=== PATIENT | female | born 1965 | race Caucasian/White ===

== ENCOUNTER 2016-08-14 08:29 | Emergency (ER) | payer BC, OTHER ==
--- NOTE | 2016-08-14 09:03 | REP ---
AP PORTABLE CHEST: 08/14/2016. Clinical history: Chest pain. Comparison: 06/10/2012. Findings: The lung montgomery are well inflated. The CP angles are sharply defined. There is no effusion, lateral pleural thickening or apical scarring. There is no pneumothorax, infiltrate, atelectasis or mass. Heart, mediastinal and hilar contours are normal. There is no pneumomediastinum. The aorta, airway and bony structures are grossly intact. No free air. Impression: 1. Normal AP portable chest. Signed by Roger Louis MD 08/14/2016 08:55 A
--- NOTE | 2016-08-14 09:05 | ECGEPIP ---
Stationary ECG Study [facility] - ED Test Date: 2016-08-14 Pat Name: LEESA CARMONA Department: Room: - Gender: F Systems Support Specialist: JUAN LUIS : 1965 Requested By: ROBERTO Mckenna Order Number: [id number] Reading MD: Kosta Raimrez Measurements Intervals [place] Rate: 62 P: 18 PA: 142 QRS: 19 QRSD: 95 T: 13 QT: 402 QTc: 410 Interpretive Statements SINUS RHYTHM NONSPECIFIC T WAVE ABNORMALITY SIMILAR TO 06/11/12 Electronically Signed On 08-14-2016 9:05:07 EST by Kosta Ramirez
[2016-08-14 09:30] LABS: BASO % 0.7 % (0.0-1.0); EOS # 0.1 K/mm3 (0.0-0.50); EOS % 2.5 % (0.0-3.0); LARGE UNSTAINED CELL # 0.1 K/mm3 (0.0-0.4); LARGE UNSTAINED CELL % 2.1 % (0.0-4.0); LYMPH # 1.4 K/mm3 (1.5-4.5); LYMPH % 24.9 % (24.0-44.0); MEAN CORPUSCULAR HEMOGLOBIN 28.3 pg (27.0-33.0); MEAN CORPUSCULAR HGB CONC 34.3 g/dl (32.0-36.5); MEAN CORPUSCULAR VOLUME 82.3 fl (80.0-96.0); MONO # 0.3 K/mm3 (0.0-0.8); MONO % 6.1 % (0.0-5.0); NEUTROPHILS # 3.4 K/mm3 (1.8-7.7); NEUTROPHILS % 63.6 % (36.0-66.0); PLATELET COUNT, AUTOMATED 242 k/mm3 (150-450); WHITE BLOOD COUNT 5.4 K/mm3 (4.0-10.0)
[2016-08-14 10:27] LABS: ANION GAP 10 MEQ/L (8-16); BLOOD UREA NITROGEN 20 MG/DL (7-18); CALCIUM LEVEL 9.3 MG/DL (8.5-10.1); CARBON DIOXIDE LEVEL 24 MEQ/L (21-32); CHLORIDE LEVEL 105 MEQ/L (98-107); CREATININE FOR GFR 0.72 MG/DL (0.55-1.02); GLOMERULAR FILTRATION RATE > 60.0 (>51); GLUCOSE, FASTING 203 MG/DL (70-105); SODIUM LEVEL 139 MEQ/L (136-145)
[2016-08-14] MEDS ORDERED: MECLIZINE 12.5 MG TAB As Ordered ONE (11:27)
--- NOTE | 2016-08-14 12:33 | EDDOCDS ---
Nurse's Notes [facility] Name: Jean Marie Pena Age: 50 yrs Sex: Female : 1965 Arrival Date: 08/14/2016 Time: 08:29 Bed D2 Private MD: Jenny Obando E Diagnosis: Chest pain, unspecified;Benign paroxysmal vertigo Presentation: 08/14 08:43 Presenting complaint: Patient states: states SOB while biking all summer long, states ml6 intermittent chest pain right sided x 1 week, states that she awoke this am with dizziness and same right sided chest pain 4/10. Adult Sepsis Screening: The patient does not have new or worsening altered mentation. Patient's respiratory rate is less than 22. Systolic blood pressure is greater than 100. Patient has a qSOFA score of 0- Negative Sepsis Screen. Suicide/Homicide risk assessment- the patient denies having any suicidal and/or homicidal ideations and does not present with any other emotional, behavioral or mental health complaints. 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 Transition of care: patient was not received from another setting of care. Red Flag criteria, patient assessed and taken directly to a bed. 08:43 Acuity: LOLI Level 2 ml6 08:43 Method Of Arrival: Walkin/Carried/Asstd ml6 Triage Assessment: 08:48 General: Appears in no apparent distress, Behavior is anxious, cooperative. Pain: ml6 Location: anterior aspect of right upper chest and right breast Pain currently is 4 out of 10 on a pain scale. Pain does not radiate. 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 HIV screening NA for this visit Offered previously. Neurological: No deficits noted. Cardiovascular: Capillary refill < 3 seconds is brisk in bilateral fingers toes Rhythm is regular Chest pain is described as mild, quality is pressure, is located in right anterior chest wall radiates Does not radiate. episodes are intermittent last > 5 minutes began 1 week MATERIAL ANALYST is aggravated by activity. Respiratory: No deficits noted. Airway is patent Respiratory effort is even, unlabored, Respiratory pattern is regular, symmetrical, Breath sounds are clear bilaterally. 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 metformin 500 mg Oral tab 1 tab daily (Last dose: 08/14/2016 07:00) 2. Invokana 100 mg oral tab 1 tab once daily stopped taking 5 days ago 3. lisinopril 2.5 mg Oral tab 1 tab once daily (Last dose: 08/14/2016 07:00) 4. Xanax 0.5 mg Oral tab 1 tab twice a day PRN anxiety (Last dose: Unknown) - PMHx: Diabetes - NIDDM: controlled; Anxiety; - PSHx: Hysterectomy; Cholecystectomy; Knee surgery- Left; - Social history: Smoking status: Patient states was never smoker of tobacco. No barriers to communication noted, Speaks appropriately for age. - Family history: Not pertinent. - : The pt / caregiver states he / she is not on anticoagulants. Home medication list is obtained from the patient. - Exposure Risk Screening:: None identified. Screenin:45 Screening information is obtained from the patient. Fall risk: No risks identified. ml6 Assistance ADL's: requires no assistance with activities of daily living. Abuse/DV Screen: The patient / caregiver reports he/she is: not in a situation that causes fear, pain or injury. Nutritional screening: No deficits noted. Advance Directives: Currently, there is no health care proxy. home support is adequate. Assessment: 08:43 General: see triage assessment. ml6 Vital Signs: 08:34 BP 174 / 82 (auto/); Pulse 70; Resp 16; Temp 98.2(O); Pulse Ox 98% on R/A; Weight 78.47 ml6 kg (R); Height 5 ft. (152.40 cm) (R); Pain 4/10; 09:07 BP 149 / 86 (auto/); ml6 09:07 Pulse 66 MON; Resp 16; Pulse Ox 97% on R/A; Pain 0/10; ml6 09:39 BP 148 / 89 (auto/); ml6 09:39 Pulse 64 MON; Resp 16; Pulse Ox 97% on R/A; ml6 10:09 BP 131 / 70 (auto/); ml6 10:09 Pulse 62 MON; Resp 16; Pulse Ox 97% on R/A; ml6 10:39 BP 154 / 86 (auto/); ml6 10:39 Pulse 60 MON; Resp 16; Pulse Ox 97% on R/A; ml6 11:28 BP 135 / 88 (auto/); ml6 11:28 Pulse 58 MON; Resp 16; Pulse Ox 97% on R/A; Pain 0/10; ml6 11:29 BP 159 / 80 (auto/); ml6 11:29 Pulse 58 MON; Resp 16; Pulse Ox 97% on R/A; ml6 11:31 BP 147 / 89 (auto/); ml6 11:31 Pulse 62 MON; Resp 16; Pulse Ox 98% on R/A; Pain 0/10; ml6 11:37 BP 141 / 77 (auto/); ml6 11:37 Pulse 56 MON; Resp 16; Pulse Ox 95% on R/A; Pain 0/10; ml6 11:46 BP 141 / 81 (auto/); ml6 11:46 Pulse 58 MON; Resp 16; Pulse Ox 98% on R/A; Pain 0/10; ml6 11:50 BP 141 / 81; Pulse 57; Resp 20; Temp 97.2(O); Pulse Ox 97% on R/A; Pain 0/10; tmm1 08:34 Body Mass Index 33.79 (78.47 kg, 152.40 cm) ml6 ED Course: 08:31 Patient visited by Bayron Claudio. mm15 08:31 Patient moved to Waiting mm15 08:32 Jenny Obando is Private Physician. 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 Pulse ox on. NIBP on. ml6 08:46 Triage Initiated ml6 08:47 Patient visited by Luis Ham. jml1 08:47 EKG done. (by ED staff). Reviewed by Roberto Magaña MD. jml1 09:13 Inserted peripheral IV: 20gauge IV in left hand and blood collected. Patient tolerated ml6 the procedure well. No procedures done that require assistance. Labs drawn. (by ED staff). Sent per order to lab. 09:14 The patient / caregiver is instructed regarding the plan of care and ED course. ml6 09:16 Patient visited by Constantino Solano RN. ml6 09:29 EKG-ADULT Returned. EDMS 09:33 Chest, 1 View Returned. EDMS 09:46 Paul Horn PA-C is PHCP. cc10 09:46 Roberto Magaña MD is Attending Physician. cc10 09:46 Patient visited by Paul Horn PA-C. cc10 09:46 Patient visited by Paul Horn PA-C. cc10 10:12 [facility] Payment Agreement was scanned into [email or web address] and attached to record. lg 10:26 Patient visited by Constantino Solano, MATT. ml6 11:26 Patient visited by Constantino Solano RN. ml6 11:39 Jenny Obando is Referral Physician. cc10 11:45 Discontinued IV bleeding controlled, pressure dressing applied, No redness/swelling at ml6 site. 11:51 Patient visited by Gris Haynes PCA. tmm1 12:09 Patient moved to D2 ml6 Administered Medications: 11:27 Drug: Meclizine 25 mg [meclizine 12.5 mg tablet (2 tabs)] Route: PO; ml6 Order Results: Lab Order: BMP; SPEC'M 08/14/16 09:11 Test: GLUCOSE, FASTING; Value: 203; Range: 70-105; Abnormal: Above high normal; Units: MG/DL; Status: F Test: BLOOD UREA NITROGEN; Value: 20; Range: 7-18; Abnormal: Above high normal; Units: MG/DL; Status: F Test: CREATININE FOR GFR; Value: 0.72; Range: 0.55-1.02; Units: MG/DL; Status: F Test: GLOMERULAR FILTRATION RATE; Value: > 60.0; Range: >51; Status: F Test: SODIUM LEVEL; Value: 139; Range: 136-145; Units: MEQ/L; Status: F Test: POTASSIUM SERUM; Value: 4.0; Range: 3.5-5.1; Units: MEQ/L; Status: F Test: CHLORIDE LEVEL; Value: 105; Range: 98-107; Units: MEQ/L; Status: F Test: CARBON DIOXIDE LEVEL; Value: 24; Range: 21-32; Units: MEQ/L; Status: F Test: ANION GAP; Value: 10; Range: 8-16; Units: MEQ/L; Status: F Test: CALCIUM LEVEL; Value: 9.3; Range: 8.5-10.1; Units: MG/DL; Status: F Test Note: ; Units are mL/min/1.73 m2 Chronic Kidney Disease Staging per NKF: Stage I & II GFR >=60 Normal to Mildly Decreased Stage III GFR 30-59 Moderately Decreased Stage IV GFR 15-29 Severely Decreased Stage V GFR <15 Very Little GFR Left ESRD GFR <15 on DAIRY GRAZER Lab Order: CBC with Diff; CHARLETTE 08/14/16 09:11 Test: WHITE BLOOD COUNT; Value: 5.4; Range: 4.0-10.0; Units: K/mm3; Status: F Test: RED BLOOD COUNT; Value: 4.65; Range: 4.00-5.40; Units: M/mm3; Status: F Test: HEMOGLOBIN; Value: 13.1; Range: 12.0-16.0; Units: g/dl; Status: F Test: HEMATOCRIT; Value: 38.3; Range: 36.0-47.0; Units: %; Status: F Test: MEAN CORPUSCULAR VOLUME; Value: 82.3; Range: 80.0-96.0; Units: fl; Status: F Test: MEAN CORPUSCULAR HEMOGLOBIN; Value: 28.3; Range: 27.0-33.0; Units: pg; Status: F Test: MEAN CORPUSCULAR HGB CONC; Value: 34.3; Range: 32.0-36.5; Units: g/dl; Status: F Test: RED CELL DISTRIBUTION WIDTH; Value: 15.0; Range: 11.5-14.5; Abnormal: Above high normal; Units: %; Status: F Test: PLATELET COUNT, AUTOMATED; Value: 242; Range: 150-450; Units: k/mm3; Status: F Test: NEUTROPHILS %; Value: 63.6; Range: 36.0-66.0; Units: %; Status: F Test: LYMPH %; Value: 24.9; Range: 24.0-44.0; Units: %; Status: F Test: MONO %; Value: 6.1; Range: 0.0-5.0; Abnormal: Above high normal; Units: %; Status: F Test: EOS %; Value: 2.5; Range: 0.0-3.0; Units: %; Status: F Test: BASO %; Value: 0.7; Range: 0.0-1.0; Units: %; Status: F Test: LARGE UNSTAINED CELL %; Value: 2.1; Range: 0.0-4.0; Units: %; Status: F Test: NEUTROPHILS #; Value: 3.4; Range: 1.8-7.7; Units: K/mm3; Status: F Test: LYMPH #; Value: 1.4; Range: 1.5-4.5; Abnormal: Below low normal; Units: K/mm3; Status: F Test: MONO #; Value: 0.3; Range: 0.0-0.8; Units: K/mm3; Status: F Test: EOS #; Value: 0.1; Range: 0.0-0.50; Units: K/mm3; Status: F Test: BASO #; Value: 0.0; Range: 0.0-0.2; Units: K/mm3; Status: F Test: LARGE UNSTAINED CELL #; Value: 0.1; Range: 0.0-0.4; Units: K/mm3; Status: F Lab Order: CIP; SPEC'M 08/14/16 09:11 Test: CPK CREATINE PHOSPHOKINASE; Value: 53; Range: 26-192; Units: U/L; Status: F Test: CK-MB VALUE MASS; Value: 1.0; Range: 0.0-3.6; Units: NG/ML; Status: F Test: MB/CK RELATIVE INDEX; Value: 1.88; Range: < OR =4; Status: F Test Note: ; DIAGNOSIS CRITERIA MMB ng/ml Relative Index (RI) NON-AMI < or = 5 N/A GUILLERMO ZONE > 5 < or = 4 AMI > 5 > 4 Lab Order: Troponin; SPEC'M 08/14/16 09:11 Test: TROPONIN I; Value: < 0.02; Range: < 0.10; Units: NG/ML; Status: F Test Note: ; Troponin I Reference Interval for [employer] LOCI: 99th Percentile= 0.00-0.045 ng/ml Risk Stratification: <= 0.10 ng/ml Decreased Risk for Adverse Clinical Events. 0.10-1.50 ng/ml Increased Risk for Adverse Clinical Events. Evaluation of additional criterion and/or repeat testing in 2-6 hours is suggested to rule out myocardial damage. >= 1.50 ng/ml Indicative of Myocardial Injury. Lab Order: A1C; SPEC'M 08/14/16 09:11 Test: HEMOGLOBIN A1c; Value: 6.8; Range: 4.5-6.2; Abnormal: Above high normal; Units: %; Status: F Test: ESTIMATED AVERAGE GLUCOSE; Value: 148; Range: 60-110; Abnormal: Above high normal; Units: MG/DL; Status: F Lab Order: D-Dimer Quant; SPEC'M 08/14/16 09:11 Test: D-DIMER QUANT; Value: < 270.0; Range: <500; Units: ng/ml; Status: F Radiology Order: Chest, 1 View Test: Chest, 1 View REASON FOR EXAMINATION: Chest Pain; AP PORTABLE CHEST: 08/14/2016.; ; Clinical history: Chest pain.; ; Comparison: 06/10/2012.; ; Findings: The lung montgomery are well inflated. The CP angles are sharply defined.; There is no effusion, lateral pleural thickening or apical scarring. There is no; pneumothorax, infiltrate, atelectasis or mass. Heart, mediastinal and hilar; contours are normal. There is no pneumomediastinum. The aorta, airway and bony; structures are grossly intact. No free air.; ; Impression:; 1. 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 cc10 11:45 Discharge Assessment: patient administered narcotics - no. The following High Risk ml6 Discharge criteria are identified: None. Discharged to home ambulatory, with significant other. Condition: stable. CT Study completed. Property sent home with patient. :Personal belongings accompany Pt. 12:32 Patient left the ED. ml6 Signatures: Dispatcher [employer] EDMS Sameera Arias, Reg Reg lg Irvin, Elvis Saucedo RN RN mlb1 Constantino Solano RN RN ml6 Luis Ham jml1 Gris Haynes, NURSE COLLEGE NURSE COLLEGE tmm1 Bayron Claudio mm15 Paul Horn, PA-C PA-C cc10 Corrections: (The following items were deleted from the chart) 09:26 09:21 HEMOGLOBIN A1C+LAB sent. malaika CHICAS MTDD
--- NOTE | 2016-08-14 12:33 | EDDOCDS ---
Physician Documentation [facility] Name: Jean Marie Pena Age: 50 yrs Sex: Female : 1965 Arrival Date: 08/14/2016 Time: 08:29 Bed D2 Private MD: Jenny Obando E Disposition: 08/14/16 11:39 Discharged to Home/Self Care. Impression: Chest pain, unspecified, Benign paroxysmal vertigo. - Condition is Stable. - Discharge Instructions: Nonspecific Chest Pain, Vertigo. - Prescriptions for Meclizine 25 mg Oral Tablet - take 1 tablet by ORAL route every 8 hours As needed; 30 tablet. - Medication Reconciliation, Work Release Form - 1 day form. - Follow up: Jenny Obando; When: Call to arrange an appointment; Reason: Wound/Symptom Recheck, Recheck today's complaints, Worsening of conditions, Continuance of care. - Problem is an ongoing problem. - Symptoms are unchanged. Historical: - Allergies: Codeine Sulfate (dizziness); - Home Meds: 1. metformin 500 mg Oral tab 1 tab daily (Last dose: 08/14/2016 07:00) 2. Invokana 100 mg oral tab 1 tab once daily stopped taking 5 days ago 3. lisinopril 2.5 mg Oral tab 1 tab once daily (Last dose: 08/14/2016 07:00) 4. Xanax 0.5 mg Oral tab 1 tab twice a day PRN anxiety (Last dose: Unknown) - PMHx: Diabetes - NIDDM: controlled; Anxiety; - PSHx: Hysterectomy; Cholecystectomy; Knee surgery- Left; - Social history: Smoking status: Patient states was never smoker of tobacco. No barriers to communication noted, Speaks appropriately for age. - Family history: Not pertinent. - : The pt / caregiver states he / she is not on anticoagulants. Home medication list is obtained from the patient. - Exposure Risk Screening:: None identified. 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 (152.40 cm) (R); Pain 4/10; 09:07 BP 149 / 86 (auto/); ml6 09:07 Pulse 66 MON; Resp 16; Pulse Ox 97% on R/A; Pain 0/10; ml6 09:39 BP 148 / 89 (auto/); ml6 09:39 Pulse 64 MON; Resp 16; Pulse Ox 97% on R/A; ml6 10:09 BP 131 / 70 (auto/); ml6 10:09 Pulse 62 MON; Resp 16; Pulse Ox 97% on R/A; ml6 10:39 BP 154 / 86 (auto/); ml6 10:39 Pulse 60 MON; Resp 16; Pulse Ox 97% on R/A; ml6 11:28 BP 135 / 88 (auto/); ml6 11:28 Pulse 58 MON; Resp 16; Pulse Ox 97% on R/A; Pain 0/10; ml6 11:29 BP 159 / 80 (auto/); ml6 11:29 Pulse 58 MON; Resp 16; Pulse Ox 97% on R/A; ml6 11:31 BP 147 / 89 (auto/); ml6 11:31 Pulse 62 MON; Resp 16; Pulse Ox 98% on R/A; Pain 0/10; ml6 11:37 BP 141 / 77 (auto/); ml6 11:37 Pulse 56 MON; Resp 16; Pulse Ox 95% on R/A; Pain 0/10; ml6 11:46 BP 141 / 81 (auto/); ml6 11:46 Pulse 58 MON; Resp 16; Pulse Ox 98% on R/A; Pain 0/10; ml6 11:50 BP 141 / 81; Pulse 57; Resp 20; Temp 97.2(O); Pulse Ox 97% on R/A; Pain 0/10; tmm1 08:34 Body Mass Index 33.79 (78.47 kg, 152.40 cm) ml6 MDM: 08:34 Craps Manager/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 ml6 08:34 If >35 years old with cardiac risk factors and/or suspicion of acute ischemia- place ml6 directly in room and do STAT EKG ordered. 08:34 IV Saline Lock ordered. ml6 08:34 Undress patient appropriately for examination ordered. ml6 08:35 BMP Ordered. EDMS 08:35 CBC with Diff Ordered. EDMS 08:35 CIP Ordered. EDMS 08:35 Troponin Ordered. EDMS 08:35 Chest, 1 View Ordered. EDMS 08:35 ECG WITH READING ER PHYS+CARDIAG ordered. EDMS 09:49 A1C Ordered. EDMS 09:54 CT Head Without Contrast Ordered. EDMS 09:55 Financial registration complete. lg 09:58 D-Dimer Quant Ordered. EDMS 10:12 [facility] Payment Agreement was scanned into [employer] and attached to record. lg 10:48 BMP Reviewed. cc10 10:48 CBC with Diff Reviewed. cc10 10:48 CIP Reviewed. cc10 10:48 Troponin Reviewed. cc10 10:48 D-Dimer Quant Reviewed. cc10 10:48 Chest, 1 View Reviewed. cc10 10:48 EKG-ADULT Reviewed. cc10 11:14 Orthostatic VS ordered. cc10 11:14 Meclizine 25 mg PO once ordered. cc10 11:14 Ambulate Patient to Assess Patient Safety ordered. cc10 11:36 A1C Reviewed. cc10 Administered Medications: 11:27 Drug: Meclizine 25 mg [meclizine 12.5 mg tablet (2 tabs)] Route: PO; ml6 Signatures: Dispatcher [employer] EDMS Sameera Arias, Reg Reg lg Constantino Solano, RN RN ml6 Paul Horn PA-C PAMinC cc10 The chart was reviewed and I authenticate all verbal orders and agree with the evaluation and treatment provided.Corrections: (The following items were deleted from the chart) 09:26 09:15 HEMOGLOBIN A1C+LAB ordered. EDMS EDMS Attachments: 10:12 [facility] Payment Agreement lg MTDD
--- NOTE | 2016-08-15 07:21 | REP ---
Clinical: Altered mental status . Comparison: None . Findings: The ventricles, sulci, and cisterns are normal in position and appearance. Alvarez-white differentiation is maintained. No acute intracranial hemorrhage, mass/mass effect, pathology or trauma/injury. No evidence for acute infarction. No extra-axial fluid collection. Calvarium is intact. Paranasal sinuses and mastoid air cells are clear. Impression: Normal noncontrast head CT. No evidence for acute intracranial pathology or trauma/injury. Signed by Dre Mcgraw MD 08/14/2016 10:06 A
--- NOTE | 2016-08-16 13:33 | EDDOCDS ---
Physician Documentation [facility] Name: Jean Marie Pena Age: 50 yrs Sex: Female : 1965 Arrival Date: 08/14/2016 Time: 08:29 Bed D2 Private MD: Jenny Obando E Disposition: 08/14/16 11:39 Discharged to Home/Self Care. Impression: Chest pain, unspecified, Benign paroxysmal vertigo. - Condition is Stable. - Discharge Instructions: Nonspecific Chest Pain, Vertigo. - Prescriptions for Meclizine 25 mg Oral Tablet - take 1 tablet by ORAL route every 8 hours As needed; 30 tablet. - Medication Reconciliation, Work Release Form - 1 day form. - Follow up: Jenny Obando; When: Call to arrange an appointment; Reason: Wound/Symptom Recheck, Recheck today's complaints, Worsening of conditions, Continuance of care. - Problem is an ongoing problem. - Symptoms are unchanged. Historical: - Allergies: Codeine Sulfate (dizziness); - Home Meds: 1. metformin 500 mg Oral tab 1 tab daily (Last dose: 08/14/2016 07:00) 2. Invokana 100 mg oral tab 1 tab once daily stopped taking 5 days ago 3. lisinopril 2.5 mg Oral tab 1 tab once daily (Last dose: 08/14/2016 07:00) 4. Xanax 0.5 mg Oral tab 1 tab twice a day PRN anxiety (Last dose: Unknown) - PMHx: Diabetes - NIDDM: controlled; Anxiety; - PSHx: Hysterectomy; Cholecystectomy; Knee surgery- Left; - Social history: Smoking status: Patient states was never smoker of tobacco. No barriers to communication noted, Speaks appropriately for age. - Family history: Not pertinent. - : The pt / caregiver states he / she is not on anticoagulants. Home medication list is obtained from the patient. - Exposure Risk Screening:: None identified. 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 (152.40 cm) (R); Pain 4/10; 09:07 BP 149 / 86 (auto/); ml6 09:07 Pulse 66 MON; Resp 16; Pulse Ox 97% on R/A; Pain 0/10; ml6 09:39 BP 148 / 89 (auto/); ml6 09:39 Pulse 64 MON; Resp 16; Pulse Ox 97% on R/A; ml6 10:09 BP 131 / 70 (auto/); ml6 10:09 Pulse 62 MON; Resp 16; Pulse Ox 97% on R/A; ml6 10:39 BP 154 / 86 (auto/); ml6 10:39 Pulse 60 MON; Resp 16; Pulse Ox 97% on R/A; ml6 11:28 BP 135 / 88 (auto/); ml6 11:28 Pulse 58 MON; Resp 16; Pulse Ox 97% on R/A; Pain 0/10; ml6 11:29 BP 159 / 80 (auto/); ml6 11:29 Pulse 58 MON; Resp 16; Pulse Ox 97% on R/A; ml6 11:31 BP 147 / 89 (auto/); ml6 11:31 Pulse 62 MON; Resp 16; Pulse Ox 98% on R/A; Pain 0/10; ml6 11:37 BP 141 / 77 (auto/); ml6 11:37 Pulse 56 MON; Resp 16; Pulse Ox 95% on R/A; Pain 0/10; ml6 11:46 BP 141 / 81 (auto/); ml6 11:46 Pulse 58 MON; Resp 16; Pulse Ox 98% on R/A; Pain 0/10; ml6 11:50 BP 141 / 81; Pulse 57; Resp 20; Temp 97.2(O); Pulse Ox 97% on R/A; Pain 0/10; tmm1 08:34 Body Mass Index 33.79 (78.47 kg, 152.40 cm) ml6 MDM: 08:34 Wellness Director/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 ml6 08:34 If >35 years old with cardiac risk factors and/or suspicion of acute ischemia- place ml6 directly in room and do STAT EKG ordered. 08:34 IV Saline Lock ordered. ml6 08:34 Undress patient appropriately for examination ordered. ml6 08:35 BMP Ordered. EDMS 08:35 CBC with Diff Ordered. EDMS 08:35 CIP Ordered. EDMS 08:35 Troponin Ordered. EDMS 08:35 Chest, 1 View Ordered. EDMS 08:35 ECG WITH READING ER PHYS+CARDIAG ordered. EDMS 09:49 A1C Ordered. EDMS 09:54 CT Head Without Contrast Ordered. EDMS 09:55 Financial registration complete. lg 09:58 D-Dimer Quant Ordered. EDMS 10:12 [facility] Payment Agreement was scanned into [employer] and attached to record. lg 10:48 BMP Reviewed. cc10 10:48 CBC with Diff Reviewed. cc10 10:48 CIP Reviewed. cc10 10:48 Troponin Reviewed. cc10 10:48 D-Dimer Quant Reviewed. cc10 10:48 Chest, 1 View Reviewed. cc10 10:48 EKG-ADULT Reviewed. cc10 11:14 Orthostatic VS ordered. cc10 11:14 Meclizine 25 mg PO once ordered. cc10 11:14 Ambulate Patient to Assess Patient Safety ordered. cc10 11:36 A1C Reviewed. cc10 14:15 T-Sheet-- Draft Copy was scanned into [employer] and attached to record. klr 15:24 ECG/EKG was scanned into [employer] and attached to record. gb Administered Medications: 11:27 Drug: Meclizine 25 mg [meclizine 12.5 mg tablet (2 tabs)] Route: PO; ml6 Signatures: Dispatcher [employer] EDMS Lu Conley, Reg Reg gb Sameera Arias, Reg Reg lg Constantino Solano RN RN ml6 Paul Horn PA-C PADago cc10 Aleksandra Monroe klaan The chart was reviewed and I authenticate all verbal orders and agree with the evaluation and treatment provided.Corrections: (The following items were deleted from the chart) 09:26 09:15 HEMOGLOBIN A1C+LAB ordered. EDMS EDMS Attachments: 10:12 [facility] Payment Agreement lg 14:15 T-Sheet-- Draft Copy klr 15:24 ECG/EKG gb Chart Complete MTDD
--- NOTE | 2016-08-16 13:33 | EDDOCDS ---
Nurse's Notes [facility] Name: Jean Marie Pena Age: 50 yrs Sex: Female : 1965 Arrival Date: 08/14/2016 Time: 08:29 Bed D2 Private MD: Jenny Obando E Diagnosis: Chest pain, unspecified;Benign paroxysmal vertigo Presentation: 08/14 08:43 Presenting complaint: Patient states: states SOB while biking all summer long, states ml6 intermittent chest pain right sided x 1 week, states that she awoke this am with dizziness and same right sided chest pain 4/10. Adult Sepsis Screening: The patient does not have new or worsening altered mentation. Patient's respiratory rate is less than 22. Systolic blood pressure is greater than 100. Patient has a qSOFA score of 0- Negative Sepsis Screen. Suicide/Homicide risk assessment- the patient denies having any suicidal and/or homicidal ideations and does not present with any other emotional, behavioral or mental health complaints. 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 Transition of care: patient was not received from another setting of care. Red Flag criteria, patient assessed and taken directly to a bed. 08:43 Acuity: LOLI Level 2 ml6 08:43 Method Of Arrival: Walkin/Carried/Asstd ml6 Triage Assessment: 08:48 General: Appears in no apparent distress, Behavior is anxious, cooperative. Pain: ml6 Location: anterior aspect of right upper chest and right breast Pain currently is 4 out of 10 on a pain scale. Pain does not radiate. 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 HIV screening NA for this visit Offered previously. Neurological: No deficits noted. Cardiovascular: Capillary refill < 3 seconds is brisk in bilateral fingers toes Rhythm is regular Chest pain is described as mild, quality is pressure, is located in right anterior chest wall radiates Does not radiate. episodes are intermittent last > 5 minutes began 1 week MEMORANDUM STATEMENT CLERK is aggravated by activity. Respiratory: No deficits noted. Airway is patent Respiratory effort is even, unlabored, Respiratory pattern is regular, symmetrical, Breath sounds are clear bilaterally. 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 metformin 500 mg Oral tab 1 tab daily (Last dose: 08/14/2016 07:00) 2. Invokana 100 mg oral tab 1 tab once daily stopped taking 5 days ago 3. lisinopril 2.5 mg Oral tab 1 tab once daily (Last dose: 08/14/2016 07:00) 4. Xanax 0.5 mg Oral tab 1 tab twice a day PRN anxiety (Last dose: Unknown) - PMHx: Diabetes - NIDDM: controlled; Anxiety; - PSHx: Hysterectomy; Cholecystectomy; Knee surgery- Left; - Social history: Smoking status: Patient states was never smoker of tobacco. No barriers to communication noted, Speaks appropriately for age. - Family history: Not pertinent. - : The pt / caregiver states he / she is not on anticoagulants. Home medication list is obtained from the patient. - Exposure Risk Screening:: None identified. Screenin:45 Screening information is obtained from the patient. Fall risk: No risks identified. ml6 Assistance ADL's: requires no assistance with activities of daily living. Abuse/DV Screen: The patient / caregiver reports he/she is: not in a situation that causes fear, pain or injury. Nutritional screening: No deficits noted. Advance Directives: Currently, there is no health care proxy. home support is adequate. Assessment: 08:43 General: see triage assessment. ml6 Vital Signs: 08:34 BP 174 / 82 (auto/); Pulse 70; Resp 16; Temp 98.2(O); Pulse Ox 98% on R/A; Weight 78.47 ml6 kg (R); Height 5 ft. (152.40 cm) (R); Pain 4/10; 09:07 BP 149 / 86 (auto/); ml6 09:07 Pulse 66 MON; Resp 16; Pulse Ox 97% on R/A; Pain 0/10; ml6 09:39 BP 148 / 89 (auto/); ml6 09:39 Pulse 64 MON; Resp 16; Pulse Ox 97% on R/A; ml6 10:09 BP 131 / 70 (auto/); ml6 10:09 Pulse 62 MON; Resp 16; Pulse Ox 97% on R/A; ml6 10:39 BP 154 / 86 (auto/); ml6 10:39 Pulse 60 MON; Resp 16; Pulse Ox 97% on R/A; ml6 11:28 BP 135 / 88 (auto/); ml6 11:28 Pulse 58 MON; Resp 16; Pulse Ox 97% on R/A; Pain 0/10; ml6 11:29 BP 159 / 80 (auto/); ml6 11:29 Pulse 58 MON; Resp 16; Pulse Ox 97% on R/A; ml6 11:31 BP 147 / 89 (auto/); ml6 11:31 Pulse 62 MON; Resp 16; Pulse Ox 98% on R/A; Pain 0/10; ml6 11:37 BP 141 / 77 (auto/); ml6 11:37 Pulse 56 MON; Resp 16; Pulse Ox 95% on R/A; Pain 0/10; ml6 11:46 BP 141 / 81 (auto/); ml6 11:46 Pulse 58 MON; Resp 16; Pulse Ox 98% on R/A; Pain 0/10; ml6 11:50 BP 141 / 81; Pulse 57; Resp 20; Temp 97.2(O); Pulse Ox 97% on R/A; Pain 0/10; tmm1 08:34 Body Mass Index 33.79 (78.47 kg, 152.40 cm) ml6 ED Course: 08:31 Patient visited by Bayron Claudio. mm15 08:31 Patient moved to Waiting mm15 08:32 Jenny Obando is Private Physician. mm15 08:32 Patient moved to 11 b1 08:40 court monitor on. Pulse ox on. NIBP on. ml6 08:46 Triage Initiated ml6 08:47 Patient visited by Luis Ham. jml1 08:47 EKG done. (by ED staff). Reviewed by Roberto Magaña MD. jml1 09:13 Inserted peripheral IV: 20gauge IV in left hand and blood collected. Patient tolerated ml6 the procedure well. No procedures done that require assistance. Labs drawn. (by ED staff). Sent per order to lab. 09:14 The patient / caregiver is instructed regarding the plan of care and ED course. ml6 09:16 Patient visited by Constantino Solano RN. ml6 09:29 EKG-ADULT Returned. EDMS 09:33 Chest, 1 View Returned. EDMS 09:46 Paul Horn PA-C is PHCP. cc10 09:46 Roberto Magaña MD is Attending Physician. cc10 09:46 Patient visited by Paul Horn PA-C. cc10 09:46 Patient visited by Paul Horn PA-C. cc10 10:12 [facility] Payment Agreement was scanned into Mavin and attached to record. lg 10:26 Patient visited by Constantino Solano, MATT. ml6 11:26 Patient visited by Constantino Solano, MATT. ml6 11:39 Jenny Obando is Referral Physician. cc10 11:45 Discontinued IV bleeding controlled, pressure dressing applied, No redness/swelling at ml6 site. 11:51 Patient visited by Gris Haynes PCA. tmm1 12:09 Patient moved to D2 6 14:15 T-Sheet-- Draft Copy was scanned into Mavin and attached to record. klr 15:24 ECG/EKG was scanned into Mavin and attached to record. gb 08/15 07:56 CT Head Without Contrast Returned. EDMS Administered Medications: 08/14 11:27 Drug: Meclizine 25 mg [meclizine 12.5 mg tablet (2 tabs)] Route: PO; ml6 Order Results: Lab Order: BMP; SPEC'M 08/14/16 09:11 Test: GLUCOSE, FASTING; Value: 203; Range: 70-105; Abnormal: Above high normal; Units: MG/DL; Status: F Test: BLOOD UREA NITROGEN; Value: 20; Range: 7-18; Abnormal: Above high normal; Units: MG/DL; Status: F Test: CREATININE FOR GFR; Value: 0.72; Range: 0.55-1.02; Units: MG/DL; Status: F Test: GLOMERULAR FILTRATION RATE; Value: > 60.0; Range: >51; Status: F Test: SODIUM LEVEL; Value: 139; Range: 136-145; Units: MEQ/L; Status: F Test: POTASSIUM SERUM; Value: 4.0; Range: 3.5-5.1; Units: MEQ/L; Status: F Test: CHLORIDE LEVEL; Value: 105; Range: 98-107; Units: MEQ/L; Status: F Test: CARBON DIOXIDE LEVEL; Value: 24; Range: 21-32; Units: MEQ/L; Status: F Test: ANION GAP; Value: 10; Range: 8-16; Units: MEQ/L; Status: F Test: CALCIUM LEVEL; Value: 9.3; Range: 8.5-10.1; Units: MG/DL; Status: F Test Note: ; Units are mL/min/1.73 m2 Chronic Kidney Disease Staging per NKF: Stage I & II GFR >=60 Normal to Mildly Decreased Stage III GFR 30-59 Moderately Decreased Stage IV GFR 15-29 Severely Decreased Stage V GFR <15 Very Little GFR Left ESRD GFR <15 on VENUE COORDINATOR Lab Order: CBC with Diff; SPEC'M 08/14/16 09:11 Test: WHITE BLOOD COUNT; Value: 5.4; Range: 4.0-10.0; Units: K/mm3; Status: F Test: RED BLOOD COUNT; Value: 4.65; Range: 4.00-5.40; Units: M/mm3; Status: F Test: HEMOGLOBIN; Value: 13.1; Range: 12.0-16.0; Units: g/dl; Status: F Test: HEMATOCRIT; Value: 38.3; Range: 36.0-47.0; Units: %; Status: F Test: MEAN CORPUSCULAR VOLUME; Value: 82.3; Range: 80.0-96.0; Units: fl; Status: F Test: MEAN CORPUSCULAR HEMOGLOBIN; Value: 28.3; Range: 27.0-33.0; Units: pg; Status: F Test: MEAN CORPUSCULAR HGB CONC; Value: 34.3; Range: 32.0-36.5; Units: g/dl; Status: F Test: RED CELL DISTRIBUTION WIDTH; Value: 15.0; Range: 11.5-14.5; Abnormal: Above high normal; Units: %; Status: F Test: PLATELET COUNT, AUTOMATED; Value: 242; Range: 150-450; Units: k/mm3; Status: F Test: NEUTROPHILS %; Value: 63.6; Range: 36.0-66.0; Units: %; Status: F Test: LYMPH %; Value: 24.9; Range: 24.0-44.0; Units: %; Status: F Test: MONO %; Value: 6.1; Range: 0.0-5.0; Abnormal: Above high normal; Units: %; Status: F Test: EOS %; Value: 2.5; Range: 0.0-3.0; Units: %; Status: F Test: BASO %; Value: 0.7; Range: 0.0-1.0; Units: %; Status: F Test: LARGE UNSTAINED CELL %; Value: 2.1; Range: 0.0-4.0; Units: %; Status: F Test: NEUTROPHILS #; Value: 3.4; Range: 1.8-7.7; Units: K/mm3; Status: F Test: LYMPH #; Value: 1.4; Range: 1.5-4.5; Abnormal: Below low normal; Units: K/mm3; Status: F Test: MONO #; Value: 0.3; Range: 0.0-0.8; Units: K/mm3; Status: F Test: EOS #; Value: 0.1; Range: 0.0-0.50; Units: K/mm3; Status: F Test: BASO #; Value: 0.0; Range: 0.0-0.2; Units: K/mm3; Status: F Test: LARGE UNSTAINED CELL #; Value: 0.1; Range: 0.0-0.4; Units: K/mm3; Status: F Lab Order: CIP; SPEC'08/14/16 09:11 Test: CPK CREATINE PHOSPHOKINASE; Value: 53; Range: 26-192; Units: U/L; Status: F Test: CK-MB VALUE MASS; Value: 1.0; Range: 0.0-3.6; Units: NG/ML; Status: F Test: MB/CK RELATIVE INDEX; Value: 1.88; Range: < OR =4; Status: F Test Note: ; DIAGNOSIS CRITERIA MMB ng/ml Relative Index (RI) NON-AMI < or = 5 N/A ALVAREZ ZONE > 5 < or = 4 AMI > 5 > 4 Lab Order: Troponin; SPEC'08/14/16 09:11 Test: TROPONIN I; Value: < 0.02; Range: < 0.10; Units: NG/ML; Status: F Test Note: ; Troponin I Reference Interval for [employer] LOCI: 99th Percentile= 0.00-0.045 ng/ml Risk Stratification: <= 0.10 ng/ml Decreased Risk for Adverse Clinical Events. 0.10-1.50 ng/ml Increased Risk for Adverse Clinical Events. Evaluation of additional criterion and/or repeat testing in 2-6 hours is suggested to rule out myocardial damage. >= 1.50 ng/ml Indicative of Myocardial Injury. Lab Order: A1C; SPEC'M 08/14/16 09:11 Test: HEMOGLOBIN A1c; Value: 6.8; Range: 4.5-6.2; Abnormal: Above high normal; Units: %; Status: F Test: ESTIMATED AVERAGE GLUCOSE; Value: 148; Range: 60-110; Abnormal: Above high normal; Units: MG/DL; Status: F Lab Order: D-Dimer Quant; SPEC'M 08/14/16 09:11 Test: D-DIMER QUANT; Value: < 270.0; Range: <500; Units: ng/ml; Status: F Radiology Order: Chest, 1 View Test: Chest, 1 View REASON FOR EXAMINATION: Chest Pain; AP PORTABLE CHEST: 08/14/2016.; ; Clinical history: Chest pain.; ; Comparison: 06/10/2012.; ; Findings: The lung montgomery are well inflated. The CP angles are sharply defined.; There is no effusion, lateral pleural thickening or apical scarring. There is no; pneumothorax, infiltrate, atelectasis or mass. Heart, mediastinal and hilar; contours are normal. There is no pneumomediastinum. The aorta, airway and bony; structures are grossly intact. No free air.; ; Impression:; 1. 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; : 1965 Requested By: ROBERTO Mckenna; Order Number: [id number] Gil MD: Kosta Ramirez; Measurements; Intervals [place]; Rate: 62 P: 18; AL: 142 QRS: 19; QRSD: 95 T: 13; QT: 402; QTc: 410; Interpretive Statements; SINUS RHYTHM; NONSPECIFIC T WAVE ABNORMALITY; SIMILAR TO 06/11/12; Electronically Signed On 08-14-2016 9:05:07 EST by Kosta Ramirez; Radiology Order: CT Head Without Contrast Test: CT Head Without Contrast REASON FOR EXAMINATION: dizzy; Clinical: Altered mental status .; ; Comparison: None .; ; Findings:; The ventricles, sulci, and cisterns are normal in position and appearance.; Alvarez-white differentiation is maintained. No acute intracranial hemorrhage,; mass/mass effect, pathology or trauma/injury. No evidence for acute infarction.; No extra-axial fluid collection. Calvarium is intact. Paranasal sinuses and; mastoid air cells are clear.; ; Impression:; Normal noncontrast head CT.; No evidence for acute intracranial pathology or trauma/injury.; ; ; Signed by; Dre Mcgraw MD 08/14/2016 10:06 A; Outcome: 11:39 Discharge ordered by Provider. cc10 11:45 Discharge Assessment: patient administered narcotics - no. The following High Risk ml6 Discharge criteria are identified: None. Discharged to home ambulatory, with significant other. Condition: stable. CT Study completed. Property sent home with patient. :Personal belongings accompany Pt. 12:32 Patient left the ED. ml6 Signatures: Dispatcher [employer] EDMS Lu Conley, Reg Reg gb Sameera Arias, Reg Reg lg Irvin, Elvis Saucedo RN RN mlb1 Constantino Solano RN RN ml6 Luis Ham jml1 Ivy, Gris, CARRIER OPERATOR CARRIER OPERATOR m1 Bayron Claudio mm15 Paul Horn, PA-C PA-C cc10 Aleksandra Monroe Corrections: (The following items were deleted from the chart) 09:26 09:21 HEMOGLOBIN A1C+LAB sent. [email or web address] EDNE Chart Complete MTDD
--- NOTE | 2016-08-16 13:33 | EDDOCDS ---
Physician Documentation [facility] Name: Jean Marie Pena Age: 50 yrs Sex: Female : 1965 Arrival Date: 08/14/2016 Time: 08:29 Bed D2 Private MD: Jenny Obando E Disposition: 08/14/16 11:39 Discharged to Home/Self Care. Impression: Chest pain, unspecified, Benign paroxysmal vertigo. - Condition is Stable. - Discharge Instructions: Nonspecific Chest Pain, Vertigo. - Prescriptions for Meclizine 25 mg Oral Tablet - take 1 tablet by ORAL route every 8 hours As needed; 30 tablet. - Medication Reconciliation, Work Release Form - 1 day form. - Follow up: Jenny Obando; When: Call to arrange an appointment; Reason: Wound/Symptom Recheck, Recheck today's complaints, Worsening of conditions, Continuance of care. - Problem is an ongoing problem. - Symptoms are unchanged. Historical: - Allergies: Codeine Sulfate (dizziness); - Home Meds: 1. metformin 500 mg Oral tab 1 tab daily (Last dose: 08/14/2016 07:00) 2. Invokana 100 mg oral tab 1 tab once daily stopped taking 5 days ago 3. lisinopril 2.5 mg Oral tab 1 tab once daily (Last dose: 08/14/2016 07:00) 4. Xanax 0.5 mg Oral tab 1 tab twice a day PRN anxiety (Last dose: Unknown) - PMHx: Diabetes - NIDDM: controlled; Anxiety; - PSHx: Hysterectomy; Cholecystectomy; Knee surgery- Left; - Social history: Smoking status: Patient states was never smoker of tobacco. No barriers to communication noted, Speaks appropriately for age. - Family history: Not pertinent. - : The pt / caregiver states he / she is not on anticoagulants. Home medication list is obtained from the patient. - Exposure Risk Screening:: None identified. 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 (152.40 cm) (R); Pain 4/10; 09:07 BP 149 / 86 (auto/); ml6 09:07 Pulse 66 MON; Resp 16; Pulse Ox 97% on R/A; Pain 0/10; ml6 09:39 BP 148 / 89 (auto/); ml6 09:39 Pulse 64 MON; Resp 16; Pulse Ox 97% on R/A; ml6 10:09 BP 131 / 70 (auto/); ml6 10:09 Pulse 62 MON; Resp 16; Pulse Ox 97% on R/A; ml6 10:39 BP 154 / 86 (auto/); ml6 10:39 Pulse 60 MON; Resp 16; Pulse Ox 97% on R/A; ml6 11:28 BP 135 / 88 (auto/); ml6 11:28 Pulse 58 MON; Resp 16; Pulse Ox 97% on R/A; Pain 0/10; ml6 11:29 BP 159 / 80 (auto/); ml6 11:29 Pulse 58 MON; Resp 16; Pulse Ox 97% on R/A; ml6 11:31 BP 147 / 89 (auto/); ml6 11:31 Pulse 62 MON; Resp 16; Pulse Ox 98% on R/A; Pain 0/10; ml6 11:37 BP 141 / 77 (auto/); ml6 11:37 Pulse 56 MON; Resp 16; Pulse Ox 95% on R/A; Pain 0/10; ml6 11:46 BP 141 / 81 (auto/); ml6 11:46 Pulse 58 MON; Resp 16; Pulse Ox 98% on R/A; Pain 0/10; ml6 11:50 BP 141 / 81; Pulse 57; Resp 20; Temp 97.2(O); Pulse Ox 97% on R/A; Pain 0/10; tmm1 08:34 Body Mass Index 33.79 (78.47 kg, 152.40 cm) ml6 MDM: 08:34 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 ml6 08:34 If >35 years old with cardiac risk factors and/or suspicion of acute ischemia- place ml6 directly in room and do STAT EKG ordered. 08:34 IV Saline Lock ordered. ml6 08:34 Undress patient appropriately for examination ordered. ml6 08:35 BMP Ordered. EDMS 08:35 CBC with Diff Ordered. EDMS 08:35 CIP Ordered. EDMS 08:35 Troponin Ordered. EDMS 08:35 Chest, 1 View Ordered. EDMS 08:35 ECG WITH READING ER PHYS+CARDIAG ordered. EDMS 09:49 A1C Ordered. EDMS 09:54 CT Head Without Contrast Ordered. EDMS 09:55 Financial registration complete. lg 09:58 D-Dimer Quant Ordered. EDMS 10:12 [facility] [place] Agreement was scanned into MEDHOST and attached to record. lg 10:48 BMP Reviewed. cc10 10:48 CBC with Diff Reviewed. cc10 10:48 CIP Reviewed. cc10 10:48 Troponin Reviewed. cc10 10:48 D-Dimer Quant Reviewed. cc10 10:48 Chest, 1 View Reviewed. cc10 10:48 EKG-ADULT Reviewed. cc10 11:14 Orthostatic VS ordered. cc10 11:14 Meclizine 25 mg PO once ordered. cc10 11:14 Ambulate Patient to Assess Patient Safety ordered. cc10 11:36 A1C Reviewed. cc10 14:15 T-Sheet-- Draft Copy was scanned into [email or web address] and attached to record. klr 15:24 ECG/EKG was scanned into [email or web address] and attached to record. gb Administered Medications: 11:27 Drug: Meclizine 25 mg [meclizine 12.5 mg tablet (2 tabs)] Route: PO; ml6 Signatures: Dispatcher [employer] EDMS Lu Conley, Reg Reg gb Sameera Arias, Reg Reg lg Constantino Solano RN RN ml6 Paul Horn PA-C PADago cc10 Aleksandra Monroe klana The chart was reviewed and I authenticate all verbal orders and agree with the evaluation and treatment provided.Corrections: (The following items were deleted from the chart) 09:26 09:15 HEMOGLOBIN A1C+LAB ordered. EDMS EDMS Attachments: 10:12 [facility] Payment Agreement lg 14:15 T-Sheet-- Draft Copy klr 15:24 ECG/EKG gb Chart Complete MTDD
== END 2016-08-14 12:32 | disposition home or self-care (01) ==
LOC: M ED 08:29
DX: R07.9 Chest pain, unspecified (principal); R42 Dizziness and giddiness; E11.9 Type 2 diabetes mellitus without complications; F41.9 Anxiety disorder, unspecified; Z79.84 Long term (current) use of oral hypoglycemic drugs; Z79.899 Other long term (current) drug therapy; Z88.5 Allergy status to narcotic agent

== ENCOUNTER → 2016-09-25 | Outpatient (CLI) | payer BC, OTHER ==
[~2016-09-25] MED LIST: METHACHOLINE KIT (J7674) INH ONE
--- NOTE | 2016-09-25 15:54 | PFTRPT ---
BRONCOPROVOCATION TEST (METHACHOLINE CHALLENGE) DATE OF PROCEDURE: 09/25/2016 ORDERING PROVIDER: Dr. Obando Study of excellent technical quality. Under protocol, methacholine was administered. A dose of 10 mg or 63.75 CDUs, a 21% decline in the FEV1 was noted. PC of 8.23 does not meet diagnostic criteria for a positive study. Flow rates did return to baseline post bronchodilator administration. IMPRESSION: Borderline methacholine challenge in view of the above. The PC falls into the not clearly diagnostic category. Clinical correlation with this information will be required. MTDD
== END ==
LOC: M CARPUL 14:47
PROVIDERS: ATTEND Internal Medicine
DX: R06.02 Shortness of breath (principal)

== ENCOUNTER → 2017-05-15 | Outpatient (CLI) | payer BC, OTHER ==
--- NOTE | 2017-05-17 14:58 | RADONC ---
RADIATION ONCOLOGY CONSULTATION NOTE DATE: 05/15/2017 CHART NUMBER: [id number]. DIAGNOSIS: Non-Hodgkin's lymphoma. STAGE: IAE. ECOG PERFORMANCE STATUS: Zero. CONSULTATION NOTE: Ms. 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 HISTORY OF PRESENT ILLNESS: The patient was in her usual state of health was found to have a left thyroid lump. On 04/22/2017, the patient underwent a left hemithyroidectomy. Pathology revealed a B-cell non-Hodgkin's lymphoma, most consistent with a follicular lymphoma W.H.O. grade 1/[address] scan was done on 05/01/2017 and showed some residual uptake in the thyroid gland, which was nonspecific. No other hypermetabolic activity was seen. The patient is now presenting for discussion of her therapeutic options. PAST MEDICAL HISTORY; The patient's past medical history is positive for diabetes. She had a tubal ligation and hysterectomy in the past. She had some type of knee surgery. ALLERGIES: The patient is allergic to CODEINE. SOCIAL HISTORY: The patient does not smoke cigarettes nor abuse alcohol. FAMILY HISTORY: The patient's family history is positive for a father with head and neck cancer and a mother with breast cancer. She had a sister with thyroid cancer. REVIEW OF SYSTEMS: The patient's review of systems is noncontributory. Denies nausea, vomiting, fevers, chills, night sweats, diplopia, headaches, anxiety or depression, anorexia, weight loss, visual disturbances, chest pain, urinary or bowel difficulties, bone pain, or neurological problems. PHYSICAL EXAMINATION: The patient is a well-developed, well-nourished, 51-year-old white female, in no acute distress. HEENT exam is normocephalic, atraumatic. Extraocular movements are intact. There is no palpable cervical, supraclavicular, infraclavicular, axillary, or inguinal lymphadenopathy present. Lungs are clear to auscultation and percussion. Heart has a regular rate and rhythm. Abdomen is benign with no hepatosplenomegaly, masses, or tenderness. Skeletal examination reveals no tenderness to pressure or percussion of the bony skeleton. Extremities reveal no clubbing, cyanosis, or edema. Neurologic exam is grossly intact, as is the remainder of the physical examination. ASSESSMENT: Ms. Pena is presenting to us today with what appears to be a stage IAE follicular lymphoma involving her left thyroid status post hemithyroidectomy for consideration of external beam radiation therapy as a therapeutic option. Clearly, an early stage low grade follicular lymphoma can be treated with a low dose of radiation, which should provide minimal acute sequelae. A dose of 24 Gy should be sufficient and can be delivered without difficulty. We discussed logistics of treatment planning, simulation subsequent fractionated daily radiation treatments. The patient is scheduled to be seen at [facility] in [place] tomorrow for a third opinion. She will then be returning to us for further discussion. I have tentatively set up the patient for an appointment for initiation of treatment planning, and radiation treatments will follow. Thank you for allowing us to participate in the care of this very pleasant woman. If I could be of any further assistance or provide you with any information, please free to contact me anytime. As always, warm regards. cc: Dr. Mark Ni, [facility] cc: Alexander Lechuga MD
== END ==
LOC: M ONCR 12:49
PROVIDERS: ATTEND Radiology Radiation Oncology
DX: C85.91 Non-Hodgkin lymphoma, unspecified, lymph nodes of head, face, and neck (principal)

== ENCOUNTER → 2017-05-19 | Outpatient (REF) | payer BC, OTHER | LOC: M LAB REF 15:13 | PROVIDERS: ATTEND Internal Medicine Medical Oncology | DX: C85.80 Other specified types of non-Hodgkin lymphoma, unspecified site (principal) ==

== ENCOUNTER 2017-05-26 14:44 | Outpatient (RCR) | payer BC, OTHER ==
--- NOTE | 2017-05-27 06:45 | RADONC ---
RADIATION ONCOLOGY SIMULATION NOTE DATE: 05/26/2017 CHART NUMBER: [id number] Ms. Pena was taken to the CT scan for CT simulation of her head and neck field. CT was accomplished without difficulty or discomfort. Radiation treatment planning is underway and radiation treatments will begin subsequently. An immobilization device including a mask was created without difficulty or discomfort. It will be used throughout the course of treatment. I was physically present throughout the course of CT simulation.
== END 2017-05-29 ==
LOC: M ONCR 14:44
PROVIDERS: ATTEND Radiology Radiation Oncology
DX: C82.01 Follicular lymphoma grade I, lymph nodes of head, face, and neck (principal)

== ENCOUNTER → 2017-05-26 | Outpatient (CLI) | payer BC, OTHER | LOC: M RAD 14:09 | PROVIDERS: ATTEND Radiology Radiation Oncology | DX: C82.01 Follicular lymphoma grade I, lymph nodes of head, face, and neck (principal) ==

== ENCOUNTER 2017-05-30 11:04 | Outpatient (RCR) | payer BC, OTHER | END 2017-06-29 | LOC: M ONCR 11:04 | DX: C82.01 Follicular lymphoma grade I, lymph nodes of head, face, and neck (principal) | CPT/HCPCS: 77300 ==

== ENCOUNTER → 2017-07-30 | Outpatient (CLI) | payer BC, OTHER | LOC: M ONCR 14:45 | DX: C82.01 Follicular lymphoma grade I, lymph nodes of head, face, and neck (principal) | CPT/HCPCS: G0463 ==

== ENCOUNTER → 2017-11-10 | Outpatient (REF) | payer BC, OTHER ==
[2017-11-10 17:48] LABS: TOTAL T3 105.8 NG/DL (60.0-181.0)
[2017-11-11 16:29] LABS: FERRITIN 116 NG/ML (8-252); IRON (FE) 55 UG/DL (50-170); PERCENT SATURATION 19.6 % (13.2-45.0); TOTAL IRON BINDING CAPACITY 281 UG/DL (250-450)
[2017-11-11 16:36] LABS: VITAMIN B12 LEVEL 276 PG/ML (247-911)
== END ==
LOC: M LAB REF 16:37
DX: E03.9 Hypothyroidism, unspecified (principal); D64.9 Anemia, unspecified
CPT/HCPCS: 83550

== ENCOUNTER → 2018-11-27 | Outpatient (REF) | payer OTHER ==
[~2018-11-27] MED LIST changes: -METHACHOLINE KIT (J7674) INH ONE; +PERC5TAB12 PO
[2018-11-27 14:20] LABS: PERCENT SATURATION 20.2 % (13.2-45.0)
== END ==
LOC: M LAB REF 12:45
PROVIDERS: ATTEND Internal Medicine
DX: D50.9 Iron deficiency anemia, unspecified (principal)

== ENCOUNTER → 2019-11-09 | Outpatient (REF) | payer OTHER ==
[2019-11-09 17:16] LABS: FREE T3 2.3 PG/ML (2.2-4.0)
== END ==
LOC: M LAB REF 16:18
PROVIDERS: ATTEND Internal Medicine
DX: C82.19 Follicular lymphoma grade II, extranodal and solid organ sites (principal); Z90.09 Acquired absence of other part of head and neck

== ENCOUNTER → 2020-07-06 | Outpatient (CLI) | payer SELFPAY | LOC: M LABSMTC 09:42 | PROVIDERS: ATTEND Pediatrics | DX: Z20.822 Contact with and (suspected) exposure to COVID-19 (principal) ==

== ENCOUNTER → 2021-07-12 | Outpatient (REF) | LOC: M LABSMTC 11:14 | PROVIDERS: ATTEND Pediatrics | DX: Z11.52 Encounter for screening for COVID-19 (principal) ==

== ENCOUNTER → 2022-02-06 | Outpatient (CLI) | payer BC, OTHER ==
[~2022-02-06] MED LIST changes: +PROHANCE 279.3MG/ML 15ML VIAL ONE
== END ==
LOC: M PLAIMG 10:22
PROVIDERS: ATTEND Internal Medicine
DX: R41.3 Other amnesia (principal); H53.8 Other visual disturbances

== ENCOUNTER → 2022-02-22 | Outpatient (REF) | payer OTHER, BC ==
[~2022-02-22] MED LIST changes: -PROHANCE 279.3MG/ML 15ML VIAL ONE
== END ==
LOC: M LAB REF 15:56
PROVIDERS: ATTEND Internal Medicine
DX: E55.9 Vitamin D deficiency, unspecified (principal); R41.3 Other amnesia; E11.9 Type 2 diabetes mellitus without complications

== ENCOUNTER → 2022-07-26 | Outpatient (CLI) | payer BC, OTHER ==
[~2022-07-26] MED LIST changes: +GASTROGRAFIN SOLUTION 30ML As Ordered ONE; +ISOVUE-370 76% 100ML VIAL As Ordered ONE
== END ==
LOC: M RAD 14:09
PROVIDERS: ATTEND Internal Medicine
DX: R10.84 Generalized abdominal pain (principal); K76.0 Fatty (change of) liver, not elsewhere classified; R16.2 Hepatomegaly with splenomegaly, not elsewhere classified; K76.89 Other specified diseases of liver

== ENCOUNTER 2022-10-08 06:43 | Day surgery (SDC) | payer BC, OTHER ==
[~2022-10-08] VITALS: Ht 152.4 cm; Wt 76.6 kg
[~2022-10-08 06:43] MED LIST changes: +ATOR1TAB19 PO; -GASTROGRAFIN SOLUTION 30ML As Ordered ONE; -ISOVUE-370 76% 100ML VIAL As Ordered ONE; +JARD1TAB3 PO; +LEVO88TA3 PO; +LEXA5TAB13 PO; +LOSA25TA13 PO; +METF-838 PO; +NS 1,000 ML IV ONE; +PANT40TA29 PO; +POTA-151 PO; +SEMA3TAB4 PO; +SIMETHICONE 40MG/0.6ML DROPS 30ML As Ordered ONE
[2022-10-08] MEDS ORDERED: propofoL 200 MG/20 ML VIAL As Ordered ONE ×3 (07:37→07:57)
[2022-10-08 08:40] VITALS: BP 125/86
== END 2022-10-08 09:00 | disposition home or self-care (01) ==
LOC: M OPP 06:43
PROVIDERS: ATTEND Internal Medicine Gastroenterology
DX: Z12.11 Encounter for screening for malignant neoplasm of colon (principal); D12.6 Benign neoplasm of colon, unspecified; K64.4 Residual hemorrhoidal skin tags; K64.8 Other hemorrhoids; K29.70 Gastritis, unspecified, without bleeding; E11.9 Type 2 diabetes mellitus without complications; C85.90 Non-Hodgkin lymphoma, unspecified, unspecified site; Z92.3 Personal history of irradiation; Z79.02 Long term (current) use of antithrombotics/antiplatelets; Z79.84 Long term (current) use of oral hypoglycemic drugs; Z79.890 Hormone replacement therapy; Z79.899 Other long term (current) drug therapy; Z80.1 Family history of malignant neoplasm of trachea, bronchus and lung; Z80.3 Family history of malignant neoplasm of breast; Z80.8 Family history of malignant neoplasm of other organs or systems

== ENCOUNTER → 2023-01-14 | Outpatient (CLI) | payer BC, OTHER ==
[~2023-01-14] MED LIST changes: +BARIUM SULFATE 700 MG TABLET (E-Z-DISK) As Ordered ONE; +E-Z-PAQUE 96% w/w SUSP 176GM BTL As Ordered ONE; -NS 1,000 ML IV ONE; -SIMETHICONE 40MG/0.6ML DROPS 30ML As Ordered ONE; +VARIBAR NECTAR 40% w/v 240ML SUSP BTL As Ordered ONE; +VARIBAR PUDDING 40% w/v 230ML TUBE As Ordered ONE
== END ==
LOC: M RAD 10:37
PROVIDERS: ATTEND Otolaryngology
DX: R13.19 Other dysphagia (principal)

== ENCOUNTER → 2023-11-19 | Outpatient (CLI) | payer OTHER ==
[~2023-11-19] MED LIST changes: -BARIUM SULFATE 700 MG TABLET (E-Z-DISK) As Ordered ONE; -E-Z-PAQUE 96% w/w SUSP 176GM BTL As Ordered ONE; +ISOVUE-300 61% 100ML VIAL As Ordered ONE; +LIDOCAINE 1% MDV 20ML VIAL As Ordered ONE; +PROHANCE 279.3MG/ML 5ML VIAL As Ordered ONE; -VARIBAR NECTAR 40% w/v 240ML SUSP BTL As Ordered ONE; -VARIBAR PUDDING 40% w/v 230ML TUBE As Ordered ONE
== END ==
LOC: M RAD 09:03
PROVIDERS: ATTEND Physician Assistant Surgical
DX: M25.312 Other instability, left shoulder (principal)
CPT/HCPCS: 23350; 73223; 77002; A9576; Q9967

== ENCOUNTER → 2024-03-19 | Outpatient (REF) | payer OTHER ==
[~2024-03-19] MED LIST changes: -ISOVUE-300 61% 100ML VIAL As Ordered ONE; -LIDOCAINE 1% MDV 20ML VIAL As Ordered ONE; -PROHANCE 279.3MG/ML 5ML VIAL As Ordered ONE
== END ==
LOC: M LAB REF 16:22
PROVIDERS: ATTEND Internal Medicine
DX: M25.50 Pain in unspecified joint (principal)

== ENCOUNTER → 2024-06-16 | Outpatient (CLI) | payer OTHER ==
[~2024-06-16] MED LIST changes: +GASTROGRAFIN SOLUTION 30ML ONE; +ISOVUE-370 76% 100ML VIAL ONE
== END ==
LOC: M PLAIMG 07:04
PROVIDERS: ATTEND Internal Medicine
DX: R10.32 Left lower quadrant pain (principal); K76.0 Fatty (change of) liver, not elsewhere classified